=== PATIENT | female | born 1970 | race Hispanic/Latino ===

== ENCOUNTER → 2016-09-25 | Outpatient (REF) | payer BC ==
[~2016-09-25] MED LIST: CTLP20T PO; GFCD10B GT; HYDR-3702 PO; LEVO500T16 PO; LEVO500T80 PO; LORA10TA7 PO; METR500T17 PO; OMEP20CA12 PO; ONDAN4ODT PO; OSLT75C PO; OXYC-109 PO; PARO20TA57 PO
[2016-09-25 10:45] LABS: BASOPHILS % (AUTO) 0 % (0-2); EOSINOPHILS # (AUTO) 0.3 10^3uL; EOSINOPHILS % (AUTO) 3 % (0-4); LYMPHOCYTES # (AUTO) 2.2 X10^3; MEAN CORPUSCULAR HEMOGLOBIN 28.4 PG (26.0-34.0); MEAN CORPUSCULAR HGB CONC 33.2 g/dL (31.0-37.0); MEAN CORPUSCULAR VOLUME 86 FL (80-100); MEAN PLATELET VOLUME 9.6 FL (6.0-9.5); MONOCYTES # (AUTO) 0.7 X10^3; MONOCYTES % (AUTO) 7 % (3-11); NEUTROPHILS # (AUTO) 6.7 X10^3; NEUTROPHILS % (AUTO) 67 % (51-67); PLATELET COUNT 362 10^3uL (150-450); WHITE BLOOD COUNT 10.05 10^3uL (4.0-11.0)
[2016-09-25 11:10] LABS: ERYTHROCYTE SEDIMENTATION RT* 30 mm/hr (0-21)
== END ==
LOC: LAB 10:27
PROVIDERS: ATTEND Nurse Practitioner Family
DX: L08.89 Other specified local infections of the skin and subcutaneous tissue (principal); W55.01XS Bitten by cat, sequela
CPT/HCPCS: 85025; 85652; 86140